=== PATIENT | female | born 1945 | race Caucasian/White ===

== ENCOUNTER → 2018-09-27 | Outpatient (CLI) | payer MEDICARE ==
[~2018-09-27] MED LIST: ASPI-892; CITA-105 PO; FLEC100T2 PO; IPRA15SP2 NS; LORA10TA2; LORA10TA7 PO; METO-272 PO; MGX400T PO; MNTL10T PO; MTP100TCR PO; PARO20TA57; PROP10DR2 OP; RANI-10 PO; VIT D PO; WARF7.5T PO; WRF5T PO
--- NOTE | 2018-09-27 20:56 | Diagnostic Imaging Report ---
INDICATION: Routine screening. Comparison is made with prior mammograms from 01/29/2013 and 01/27/2012. 2-D and 3-D bilateral screening mammography was performed. The current study was also evaluated with a Computer Aided Detection (CAD) system. 3-D tomosynthesis was also performed and reviewed. FINDINGS: Scattered fibroglandular densities are identified bilaterally. The parenchymal pattern is stable. No mass or malignant-appearing microcalcifications are seen. The axillae are unremarkable. IMPRESSION: No mammographic features suspicious for malignancy are identified. ACR BI-RADS Category 1: Negative. Result letter will be mailed to the patient. Note: At least 10% of breast cancer is not imaged by mammography. Dictated by: Dictated on workstation # [id number]
== END ==
LOC: RAD 09:50
DX: Z12.31 Encounter for screening mammogram for malignant neoplasm of breast (principal)
CPT/HCPCS: 77067

== ENCOUNTER → 2021-02-05 | Outpatient (CLI) | payer MEDICARE ==
[2021-02-05 11:14] LABS: HEMATOCRIT 42 % (35-52); HEMOGLOBIN 13.2 g/dL (11.5-16.0); MEAN CORPUSCULAR HEMOGLOBIN 31 pg (25-34); MEAN CORPUSCULAR HGB CONC 32 g/dL (32-36); MEAN CORPUSCULAR VOLUME 97 fL (80-99); MEAN PLATELET VOLUME 9.9 fL (9.0-12.2); PLATELET COUNT 243 10^3/uL (130-400); WHITE BLOOD COUNT 4.7 10^3/uL (4.3-11.0)
[2021-02-05 11:22] LABS: ALBUMIN 3.8 GM/DL (3.2-4.5)
[2021-02-05 11:23] LABS: POTASSIUM 3.9 MMOL/L (3.6-5.0)
[2021-02-05 11:24] LABS: CALCIUM 9.8 MG/DL (8.5-10.1)
[2021-02-05 11:25] LABS: TOTAL PROTEIN 7.4 GM/DL (6.4-8.2)
[2021-02-05 11:27] LABS: BILIRUBIN,TOTAL 0.8 MG/DL (0.1-1.0)
[2021-02-05 11:29] LABS: CREATININE SERUM 0.82 MG/DL (0.60-1.30)
--- NOTE | 2021-02-05 12:27 | Diagnostic Imaging Report ---
INDICATION: ABNORMAL WEIGHT LOSS. TECHNIQUE: Two view chest 11:36 AM CORRELATION STUDY: 07/24/2009 FINDINGS: Heart size enlarged. Vasculature slightly increased. Slight fullness of the hilum, left greater than right. Small bilateral pleural effusions, right greater than left. Likely minimal atelectasis at the lung bases with minimal infiltrate not excluded. Mild degenerative change of the visualized thoracic and lumbar spine. Vascular calcification of the abdominal aorta. IMPRESSION: 1. Cardiac enlargement without failure. 2. Small pleural effusions with likely minimal atelectasis or infiltrate both lung bases. 3. Given findings and history, consideration for CT imaging would be recommended. Dictated by: Dictated on workstation # [id number]
--- NOTE | 2021-02-05 18:01 | Diagnostic Imaging Report ---
PROCEDURE: CT abdomen and pelvis without contrast. TECHNIQUE: Multiple contiguous axial images were obtained through the abdomen and pelvis without the use of intravenous contrast. Auto Exposure Controls were utilized during the CT exam to meet ALARA standards for radiation dose reduction. INDICATION: Abnormal weight loss. COMPARISON: 09/02/2010. FINDINGS: Small left greater than right bibasilar pleural effusions are present with associated adjacent atelectasis. The heart is enlarged. 1 cm hypodensity is present within the right hepatic lobe, not significantly changed since 2010, consistent with a non-aggressive process. The unenhanced liver is otherwise unremarkable. The unenhanced spleen is unremarkable. The adrenal glands are unremarkable. The gallbladder is unremarkable. Mild fatty infiltration of the pancreas. Otherwise, the pancreas is unremarkable. Small nonobstructing right renal calculus. The unenhanced kidneys are otherwise unremarkable. The ureters are unremarkable. Moderate vascular calcifications within the abdominal aorta and its branch vessels without aneurysmal dilatation of the abdominal aorta. Postsurgical changes associated with the anterior abdominal wall. The urinary bladder is unremarkable. The uterus is not visualized, surgically absent. No abnormal adnexal mass lesion. Colonic diverticulosis without CT evidence of diverticulitis. No bowel obstruction or pneumatosis. The appendix is unremarkable. No significant adenopathy, free air, or free fluid within the abdomen or pelvis. [place] left curvature of the spine. Significant multilevel degenerative changes are present. Grade 1 anterolisthesis of L3 on L4. There is resulting multilevel central canal stenosis and neural foraminal stenosis within the lumbar spine. IMPRESSION: Small, left greater than right bibasilar pleural effusions with adjacent atelectasis. Cardiomegaly. Colonic diverticulosis without CT evidence of diverticulitis. Small nonobstructing right renal calculus. Significant degenerative changes within the spine with resulting multilevel central canal and neural foraminal stenosis. Additional findings as above. Dictated by: Dictated on workstation # [id number]
--- NOTE | 2021-02-08 10:20 | Diagnostic Imaging Report ---
INDICATION: Routine screening. COMPARISON: 09/27/2018. TECHNIQUE: 2D and 3D bilateral screening mammography was performed with CAD. FINDINGS: Scattered fibroglandular densities are identified bilaterally. The parenchymal pattern is stable. No mass or malignant-appearing microcalcifications are seen. The axillae are unremarkable. IMPRESSION: No mammographic features suspicious for malignancy are identified. ACR BI-RADS Category 1: Negative. Result letter will be mailed to the patient. Note: At least 10% of breast cancer is not imaged by mammography. Dictated by: Dictated on workstation # [id number]
== END ==
LOC: RAD 11:30
DX: Z12.31 Encounter for screening mammogram for malignant neoplasm of breast (principal); I51.7 Cardiomegaly; D50.0 Iron deficiency anemia secondary to blood loss (chronic); J90 Pleural effusion, not elsewhere classified; K57.30 Diverticulosis of large intestine without perforation or abscess without bleeding; N20.0 Calculus of kidney; M47.816 Spondylosis without myelopathy or radiculopathy, lumbar region; M48.061 Spinal stenosis, lumbar region without neurogenic claudication; M43.16 Spondylolisthesis, lumbar region
CPT/HCPCS: 36415; 71046; 74176; 77063; 77067; 80053; 82728; 84443; 85027

== ENCOUNTER → 2021-02-11 | Outpatient (CLI) | payer MEDICARE ==
--- NOTE | 2021-02-11 16:50 | Diagnostic Imaging Report ---
PROCEDURE: CT chest without contrast. TECHNIQUE: Multiple contiguous axial images were obtained through the chest without the use of intravenous contrast. Auto Exposure Controls were utilized during the CT exam to meet ALARA standards for radiation dose reduction. INDICATION: Pleural effusion. COMPARISON: 02/05/[address] of the abdomen dated 09/02/2010. FINDINGS: Enlargement with suggestion of a 2.7 cm hypodense nodule within the right thyroid lobe. Precarinal lymph node is mildly enlarged measuring 1.2 cm in short dimension. No additional adenopathy is definitely identified within the chest although evaluation is slightly limited secondary to the lack of intravenous contrast. Mild scattered vascular calcifications without aneurysmal dilatation of the thoracic aorta. The heart is enlarged, particularly the right heart. No pericardial effusion. Small to moderate sized dependently layering bilateral pleural effusions with adjacent atelectasis. No pneumothorax. The trachea is patent. 0.4 cm left upper lobe pulmonary nodule, series 3, image 37. Mild scarring and/or atelectasis within the lingula. 0.4 cm right upper lobe pulmonary nodule, series 3, image 49. Mild atelectasis within the right lower lobe and right middle lobe. Mild fatty infiltration of the pancreas. 1.3 cm hypodensity is identified within the posterior aspect of the right hepatic lobe, not significantly changed since prior imaging from 09/02/2010. The visualized upper abdomen is otherwise unremarkable. No acute osseous abnormality with mild scattered osseous degenerative changes. IMPRESSION: Small to moderate-sized dependently layering bilateral pleural effusions with minimal adjacent atelectasis. Bilateral 0.4 cm and smaller pulmonary nodules. A followup CT of the chest is recommended in 1 year to reevaluate. 2.7 cm nodule within the right thyroid lobe with associated enlargement of the right thyroid gland. Recommend a thyroid ultrasound for further evaluation. Mild precarinal adenopathy, of uncertain etiology or significance. Dictated by: Dictated on workstation # [id number]
== END ==
LOC: RAD 15:17
DX: J90 Pleural effusion, not elsewhere classified (principal); E04.1 Nontoxic single thyroid nodule; R91.8 Other nonspecific abnormal finding of lung field; R59.9 Enlarged lymph nodes, unspecified
CPT/HCPCS: 71250

== ENCOUNTER → 2021-03-09 | Outpatient (CLI) | payer MEDICARE ==
--- NOTE | 2021-03-09 16:54 | Diagnostic Imaging Report ---
PROCEDURE: US Thyroid. TECHNIQUE: Multiple real-time grayscale images were obtained of the thyroid in various projections. INDICATION: Follow-up of thyroid nodule on CT scan. FINDINGS: The right lobe measures 5.4 x 2.2 x 2 cm. There are two solid nodules demonstrated, both are which hypoechoic and well circumscribed. Largest is off the lower portion measuring 2.2 x 2.4 x 2.2 cm and appears taller than wide. This has a few small anechoic areas. No calcifications are seen. Smaller lesion measures 1.9 x 1.4 x 1.7 cm, hypoechoic throughout without calcification. The left lobe measures 5.4 x 2.7 x 1.8 cm. There are two solid nodules, largest present in the lower pole measuring 1 x 0.8 x 0.7 cm with rather ill-defined margin. Second in the upper portion measuring 0.6 x 0.4 x 0.6 cm which is hypoechoic. No calcification. There is normal blood flow. IMPRESSION: Bilateral thyroid nodules. 1. The largest nodule is inferiorly on the right which is solid and hypoechoic, taller than wide, without calcification. Additional smaller thyroid nodules. The large nodule is considered highly suspicious. Would recommend ultrasound-guided biopsy, TI-RADS 5. 2. The remaining thyroid nodules are considered mildly suspicious, TI-RADS 3. Dictated by: Dictated on workstation # [id number]
== END ==
LOC: RAD 14:30
DX: E04.2 Nontoxic multinodular goiter (principal)
CPT/HCPCS: 76536

== ENCOUNTER 2021-10-09 08:31 | Inpatient (IN) | payer MEDICARE ==
[~2021-10-09] VITALS: Ht 162.6 cm; Wt 88.3 kg
--- NOTE | 2021-10-09 08:48 | ED Respiratory ---
General Chief Complaint: Respiratory Problems Stated Complaint: SOB Source: patient Exam Limitations: no limitations History of Present Illness Date Seen by Provider: Oct 09, 2021 Time Seen by Provider: 08:35 Initial Comments Patient is a 76-year-old female who presents to the emergency department today with a chief complaint of shortness of breath. Her symptoms have been coming on for about a week. She has an occasionally productive cough. She denies sinus congestion, runny nose or sore throat. No reported fevers or chills. She denies any chest pain, pressure, tightness or heaviness. No swelling. She is COVID vaccinated without boosters. She has a history of atrial fibrillation on anticoagulation, Eliquis. No problems with bowel or bladder. No other complaints of illness. She decided to come to the emergency room this morning because "I cannot breathe". She does see Dr. Ramírez for her A. fib management. She does not have a local provider as her primary care recently . She was noted on presentation to be slightly labored in her breathing with room air saturations of 85%. She does not use oxygen at home, she does not use inhalers. She has a remote smoking history. She states she has never had a heart cath. All other review of systems reviewed and negative except as stated. Timing/Duration: week, getting worse Severity: moderate Modifying Factors: Worse With Activity Associated Symptoms: cough, dizziness (with exertion) Allergies and Home Medications Allergies Coded Allergies: Penicillins (Verified Allergy, Unknown, 06/03/07) levofloxacin (Verified Allergy, Unknown, 06/03/07) Patient Home Medication List Home Medication List Reviewed: Yes Citalopram Hydrobromide (Citalopram Hbr) 40 Mg Tablet, 40 MG PO, (Reported) Entered as Reported by: REY GEIGER on 08/09/11 0823 Flecainide Acetate (Flecainide Acetate) 100 Mg Tablet, 100 MG PO BID, (Reported) Entered as Reported by: MERY MACIEL on 07/24/09 1448 Ipratropium [place] (Ipratropium [place]) 15 Ml [place], 15 ML NS TID PRN, (Reported) Entered as Reported by: BOB ALEMAN on 08/09/11 1203 Loratadine (Loratadine) 10 Mg Tablet, 10 MG PO DAILY PRN, (Reported) Entered as Reported by: BOB ALEMAN on 08/09/11 1203 Metoprolol Succinate (Toprol Xl) 100 Mg Tab, 100 MG PO HS, (Reported) Entered as Reported by: LOLIS IQBAL on 01/15/09 163 Metoprolol Succinate (Metoprolol Succinate Xl 50 Mg) 50 Mg Tab.sr.24h, 50 MG PO DAILY, (Reported) Entered as Reported by: BOB ALEMAN on 08/09/11 120 Montelukast Sodium (Singulair 10 Mg) 10 Mg Tablet, 10 MG PO DAILY, (Reported) Entered as Reported by: REY GEIGER on 08/09/11 08 Propylene Glycol/Peg 400 (Systane Ultra 0.3-0.4% Eye Drp) 10 Ml Drops, 10 ML OP TID PRN, (Reported) Entered as Reported by: BOB ALEMAN on 08/09/11 120 Ranitidine Hcl (Acid Control) 150 Mg Tablet, 150 MG PO BID, (Reported) Entered as Reported by: LOLIS IQBAL on 01/15/09 163 Warfarin Sod (Coumadin 5 Mg) 5 Mg Tab, 5 MG PO DAILY, (Reported) Entered as Reported by: LOLIS IQBAL on 01/15/09 163 Warfarin Sod (Coumadin) 7.5 Mg Tablet, 7.5 MG PO , MON., (Reported) Entered as Reported by: BOB ALEMAN on 08/09/11 120 [Vit D] , 50,000 UNIT PO, (Reported) Entered as Reported by: REY GEIGER on 08/09/11 08 Review of Systems Review of Systems Constitutional: see HPI EENTM: no symptoms reported Respiratory: cough, dyspnea on exertion, phlegm, short of breath Cardiovascular: no symptoms reported Gastrointestinal: no symptoms reported Genitourinary: no symptoms reported : No Musculoskeletal: no symptoms reported Skin: no symptoms reported All Other Systems Reviewed Negative Unless Noted: Yes Past Ytfyupw-Hzojph-Lpjdiv Hx Past Medical History Reproductive Disorders: Yes Physical Exam Vital Signs - First Documented 10/09/21 08:32 Temp 36.4 Pulse 113 Resp 26 B/P (MAP) 202/137 (158) Pulse Ox 95 O2 Delivery Nasal Cannula O2 Flow Rate 3.00 Capillary Refill : Height: '" Weight: lbs. oz. kg; BMI Method:Stated General Appearance: WD/WN, mild distress Eyes: Bilateral Eye Normal Inspection, Bilateral Eye PERRL, Bilateral Eye EOMI Neck: normal inspection Respiratory: respiratory distress (mild), rhonchi, other (wet cough) Cardiovascular: tachycardia (110), irregularly irregular Gastrointestinal: normal bowel sounds, non tender, soft Extremities: normal range of motion, non-tender, normal inspection, no pedal edema Neurologic/Psychiatric: alert, normal mood/affect, oriented x 3 Skin: normal color, warm/dry Focused Exam Lactate Level 10/09/21 08:55: Lactic Acid Level 1.66 Lactic Acid Level Laboratory Tests Test 10/09/21 08:55 Lactic Acid Level 1.66 MMOL/L (0.50-2.00) Progress/Results/Core Measures Suspected Sepsis SIRS Temperature: Pulse: Respiratory Rate: Laboratory Tests 10/09/21 08:45: White Blood Count 8.9 Blood Pressure / Mean: 10/09/21 08:55: Lactic Acid Level 1.66 Laboratory Tests 10/09/21 08:45: Creatinine 0.83, INR Comment 1.2, Platelet Count 261, Total Bilirubin 1.7H Results/Orders Lab Results Laboratory Tests Test 10/09/21 08:45 10/09/21 08:55 10/09/21 10:48 Range/Units White Blood Count 8.9 4.3-11.0 10^3/uL Red Blood Count 4.34 3.80-5.11 10^6/uL Hemoglobin 14.0 11.5-16.0 g/dL Hematocrit 43 35-52 % Mean Corpuscular Volume 100 H 80-99 fL Mean Corpuscular Hemoglobin 32 25-34 pg Mean Corpuscular Hemoglobin Concent 32 32-36 g/dL Red Cell Distribution Width 13.1 10.0-14.5 % Platelet Count 261 130-400 10^3/uL Mean Platelet Volume 9.9 9.0-12.2 fL Immature Granulocyte % (Auto) 0 % Neutrophils (%) (Auto) 73 42-75 % Lymphocytes (%) (Auto) 15 12-44 % Monocytes (%) (Auto) 10 0-12 % Eosinophils (%) (Auto) 1 0-10 % Basophils (%) (Auto) 1 0-10 % Neutrophils # (Auto) 6.5 1.8-7.8 10^3/uL Lymphocytes # (Auto) 1.4 1.0-4.0 10^3/uL Monocytes # (Auto) 0.9 0.0-1.0 10^3/uL Eosinophils # (Auto) 0.1 0.0-0.3 10^3/uL Basophils # (Auto) 0.1 0.0-0.1 10^3/uL Immature Granulocyte # (Auto) 0.0 0.0-0.1 10^3/uL Prothrombin Time 15.2 H 12.2-14.7 SEC INR Comment 1.2 0.8-1.4 Activated Partial Thromboplast Time 38 H 24-35 SEC Sodium Level 138 135-145 MMOL/L Potassium Level 4.6 3.6-5.0 MMOL/L Chloride Level 102 98-107 MMOL/L Carbon Dioxide Level 24 21-32 MMOL/L Anion Gap 12 5-14 MMOL/L Blood Urea Nitrogen 18 7-18 MG/DL Creatinine 0.83 0.60-1.30 MG/DL Estimat Glomerular Filtration Rate 73 BUN/Creatinine Ratio 22 Glucose Level 127 H 70-105 MG/DL Calcium Level 9.7 8.5-10.1 MG/DL Corrected Calcium 9.8 8.5-10.1 MG/DL Magnesium Level 1.8 1.6-2.4 MG/DL Total Bilirubin 1.7 H 0.1-1.0 MG/DL Aspartate Amino Transf (AST/SGOT) 26 5-34 U/L Alanine Aminotransferase (ALT/SGPT) 21 0-55 U/L Alkaline Phosphatase 149 H 40-136 U/L Myoglobin 39.2 10.0-92.0 NG/ML Troponin I < 0.028 <0.028 NG/ML B-Type Natriuretic Peptide 847.8 H <100.0 PG/ML Total Protein 8.2 6.4-8.2 GM/DL Albumin 3.9 3.2-4.5 GM/DL Lactic Acid Level 1.66 0.50-2.00 MMOL/L SARS-CoV-2 RNA (RT-PCR) Detected H Not Detecte Urine Color YELLOW Urine Clarity CLEAR Urine pH 6.5 5-9 Urine Specific [place] 1.010 L 1.016-1.022 Urine Protein NEGATIVE NEGATIVE Urine Glucose (UA) NEGATIVE NEGATIVE Urine Ketones NEGATIVE NEGATIVE Urine Nitrite NEGATIVE NEGATIVE Urine Bilirubin NEGATIVE NEGATIVE Urine Urobilinogen 0.2 < = 1.0 MG/DL Urine Leukocyte Esterase TRACE H NEGATIVE Urine RBC (Auto) NEGATIVE NEGATIVE Urine RBC RARE /HPF Urine WBC RARE /HPF Urine Squamous Epithelial Cells 5-10 /HPF Urine Crystals NONE /LPF Urine Bacteria NEGATIVE /HPF Urine Casts NONE /LPF Urine Mucus NEGATIVE /LPF Urine Culture Indicated CULTURE PENDING Micro Results Microbiology 10/09/21 Urine Culture - Final, Complete Mixed Bacterial [place] 10/09/21 Blood Culture - Preliminary, Resulted No growth My Orders Orders - AROLDO DELA CRUZ MD Cbc With Automated Diff (10/09/21 08:42) Magnesium (10/09/21 08:42) Chest 1 View, Ap/Pa Only (10/09/21 08:42) Ekg Tracing (10/09/21 08:42) Comprehensive Metabolic Panel (10/09/21 08:42) Myoglobin Serum (10/09/21 08:42) Protime With Inr (10/09/21 08:42) Partial Thromboplastin Time (10/09/21 08:42) O2 (10/09/21 08:42) Monitor-Rhythm Ecg Trace Only (10/09/21 08:42) Ed Iv/Invasive Line Start (10/09/21 08:42) Bnp Bridgett (10/09/21 08:42) Troponin I [place] (10/09/21 08:42) Blood Culture (10/09/21 08:42) Sputum Culture (10/09/21 08:42) Urinalysis (10/09/21 08:42) Urine Culture (10/09/21 08:42) Ed Iv/Invasive Line Start (10/09/21 08:42) Ed Iv/Invasive Line Start (10/09/21 08:42) Vital Signs Adult Sepsis Patie Q15M (10/09/21 08:42) O2 (10/09/21 08:42) Remove Rings In Anticipation O (10/09/21 08:42) Lactic Acid Analyzer (10/09/21 08:42) Covid 19 Inhouse Test (10/09/21 08:42) Isolation Central Supply Req (10/09/21 08:42) Dexamethasone Injection (Decadron Injec (10/09/21 10:15) Ed Admission (Communication) (10/09/21 11:19) Medications Given in ED Vital Signs/I&O 10/09/21 10/09/21 08:32 08:32 Temp 36.4 Pulse 113 Resp 26 B/P (MAP) 202/137 (158) Pulse Ox 95 95 O2 Delivery Nasal Cannula Nasal Cannula O2 Flow Rate 3.00 3.00 Capillary Refill : ECG Initial ECG Impression Date: Oct 09, 2021 Initial ECG Impression Time: 08:49 Initial ECG Rate: 97 Initial ECG Rhythm: A Fib/Flutter Initial ECG Impression: Atrial Fibrillation Diagnostic Imaging Diagonstic Imaging: Xray Plain Films/CT/US/NM/MRI: chest Comments [facility] [place], [place] NAME: [facility] REC#: [id number] PT STATUS: REG ER : 1945 PHYSICIAN: AROLDO DELA CRUZ MD ADMIT DATE: 10/09/21/ER Draft Date of Exam:10/09/21 CHEST 1 VIEW, AP/PA ONLY Indication: Chest pain. Comparison: 02/05/2021. Discussion: Single portable upright view of the chest was obtained. Borderline cardiomegaly appears stable. Moderate left pleural effusion is new. Some infiltrate along the right infrahilar region, concerning for pneumonia. There may be some additional infiltrate within the left lung base, atelectasis versus pneumonia. No pneumothorax or osseous abnormality. Impression: 1. Moderate left pleural effusion. 2. Bibasilar infiltrates, likely pneumonia. Dictated on workstation # [id number] Dict: 10/09/21 1033 Trans: 10/09/21 1036 CVB [id number] Interpreted by: ROBERTO CARLOS RUDOLPH MD Electronically signed by: Departure Communication (Admissions) Time/Spoke to Admitting Phy: 11:[address] Lewis Impression Primary Impression: Pneumonia due to COVID-19 virus Additional Impressions: Atrial fibrillation Qualified Codes: I48.91 - Unspecified atrial fibrillation Hypertension Qualified Codes: I10 - Essential (primary) hypertension Disposition: ADMITTED INPATIENT Condition: Stable Admissions Decision to Admit Reason: Admit from ER (General) Decision to Admit/Date: Oct 09, 2021 Time/Decision to Admit Time: 11:50 Departure-Patient Inst. Referrals: NO,LOCAL PHYSICIAN (PCP/Family) Primary Care Physician AROLDO DELA CRUZ MD Oct 09, 2021 08:48
[2021-10-09 08:59] LABS: BASOPHILS # (AUTO) 0.1 10^3/uL (0.0-0.1); BASOPHILS % (AUTO) 1 % (0-10); EOSINOPHILS # (AUTO) 0.1 10^3/uL (0.0-0.3); EOSINOPHILS % (AUTO) 1 % (0-10); HEMATOCRIT 43 % (35-52); LYMPHOCYTES # (AUTO) 1.4 10^3/uL (1.0-4.0); LYMPHOCYTES % (AUTO) 15 % (12-44); MEAN CORPUSCULAR HEMOGLOBIN 32 pg (25-34); MEAN CORPUSCULAR HGB CONC 32 g/dL (32-36); MEAN CORPUSCULAR VOLUME 100 fL (80-99); MEAN PLATELET VOLUME 9.9 fL (9.0-12.2); MONOCYTES # (AUTO) 0.9 10^3/uL (0.0-1.0); MONOCYTES % (AUTO) 10 % (0-12); NEUTROPHILS # (AUTO) 6.5 10^3/uL (1.8-7.8); NEUTROPHILS % (AUTO) 73 % (42-75); PLATELET COUNT 261 10^3/uL (130-400); WHITE BLOOD COUNT 8.9 10^3/uL (4.3-11.0)
[2021-10-09 09:07] LABS: INR 1.2 (0.8-1.4); PROTHROMBIN TIME PATIENT 15.2 SEC (12.2-14.7)
[2021-10-09 09:08] LABS: ALBUMIN 3.9 GM/DL (3.2-4.5); POTASSIUM 4.6 MMOL/L (3.6-5.0)
[2021-10-09 09:09] LABS: CALCIUM 9.7 MG/DL (8.5-10.1)
[2021-10-09 09:10] LABS: TOTAL PROTEIN 8.2 GM/DL (6.4-8.2)
[2021-10-09 09:12] LABS: BILIRUBIN,TOTAL 1.7 MG/DL (0.1-1.0)
[2021-10-09 09:14] LABS: CREATININE SERUM 0.83 MG/DL (0.60-1.30)
[2021-10-09 09:17] LABS: MAGNESIUM 1.8 MG/DL (1.6-2.4)
--- NOTE | 2021-10-09 10:37 | Diagnostic Imaging Report ---
Indication: Chest pain. Comparison: 02/05/2021. Discussion: Single portable upright view of the chest was obtained. Borderline cardiomegaly appears stable. Moderate left pleural effusion is new. Some infiltrate along the right infrahilar region, concerning for pneumonia. There may be some additional infiltrate within the left lung base, atelectasis versus pneumonia. No pneumothorax or osseous abnormality. Impression: 1. Moderate left pleural effusion. 2. Bibasilar infiltrates, likely pneumonia. Dictated by: Dictated on workstation # [id number]
[2021-10-09 10:57] LABS: BILIRUBIN,URINE NEGATIVE (NEGATIVE); CLARITY,URINE CLEAR; COLOR,URINE YELLOW; GLUCOSE, URINE (UA) NEGATIVE (NEGATIVE); KETONES,URINE NEGATIVE (NEGATIVE); LEUKOCYTE ESTERASE ,URINE TRACE (NEGATIVE); NITRITE,URINE NEGATIVE (NEGATIVE); PH,URINE 6.5 (5-9); PROTEIN,URINE NEGATIVE (NEGATIVE)
[2021-10-09 11:09] LABS: BACTERIA,URINE NEGATIVE /HPF; RBC,URINE RARE /HPF; WBC,URINE RARE /HPF
[2021-10-09] MEDS ORDERED: meTOprolol SUCCINATE 100 MG (TOPROL XL) TAB PO ONE (12:00)
--- NOTE | 2021-10-09 13:42 | History & Physical-Hospitalist ---
History of Present Illness HPI/Chief Complaint Pt is a 76yoCF with a PMH A-fib, HTN, HLD who presented to the ER due to SOB. She reports illness x1 week. Her is currently sick as well. She complains of a cough and mild sputum production, poor appetite and subjective fevers. She was tested for COVID+ and was positive. She was hypoxic on arrival to the ER with sats around 85%. She is currently requiring 3lpm NC. Source: patient Date Seen 10/09/21 Time Seen by a Provider: 13:37 Attending Physician No,Local Physician PCP Admitting Physician: Maite Lewis MD Attending Physician: Maite Lewis MD Referring Physician Date of Admission Oct 09, 2021 at 11:20 Home Medications & Allergies Home Medications Reviewed patient Home Medication Reconciliation performed by pharmacy medication reconciliations reactor technician and/or nursing. Patients Allergies have been reviewed. Allergies Allergies Coded Allergies Penicillins (Verified Allergy, Unknown, 06/03/07) levofloxacin (Verified Allergy, Unknown, 06/03/07) Past Wwfgvvi-Tougji-Tyxntt Hx Patient Social History Marrital Status: Employed/Student: retired Tobacco Use?: No Smoking Status: Former Smoker Substance use?: No Alcohol Use?: No Pt feels they are or have been: No Immunizations Up To Date Date of Influenza Vaccine: Jan 08, 2011 First/Initial COVID19 Vaccinat: 2020 Current Status Advance Directives: No Communicates: Verbally Primary Language: Czech Preferred Spoken Language: Czech Is interpretation needed?: No Implanted or Applied Medical D: None Past Medical History High Cholesterol, Hypertension Family Medical History Reviewed Nursing Family Hx No Pertinent Family Hx, Heart Disease Review of Systems Constitutional: fever, malaise Respiratory: cough, short of breath Cardiovascular: No chest pain Gastrointestinal: No abdominal pain, No constipation, No diarrhea; loss of appetite; No nausea Genitourinary: no symptoms reported Musculoskeletal: no symptoms reported Skin: no symptoms reported Psychiatric/Neurological: No Symptoms Reported Physical Exam Physical Exam Vital Signs Vital Signs - First Documented 10/09/21 08:32 Temp 36.4 Pulse 113 Resp 26 B/P (MAP) 202/137 (158) Pulse Ox 95 O2 Delivery Nasal Cannula O2 Flow Rate 3.00 Capillary Refill : Less Than 3 Seconds Height, Weight, BMI Height: '" Weight: lbs. oz. kg; 36.00 BMI Method:Stated General Appearance: No Apparent Distress, WD/WN, Chronically ill, Obese HEENT: PERRL/EOMI, Moist Mucous Membranes; No Scleral Icterus (L), No Scleral Icterus (R) Neck: Normal Inspection, Supple Respiratory: Lungs Clear, No Accessory Muscle Use, No Respiratory Distress Cardiovascular: Regular Rate, Rhythm, No JVD, No Murmur Gastrointestinal: Normal Bowel Sounds, Non Tender, Soft Extremity: Normal Capillary Refill, No Calf Tenderness, No Pedal Edema Neurologic/Psychiatric: Alert, Oriented x3, Normal Mood/Affect Results Results/Procedures Labs Laboratory Tests 10/09/21 08:45 10/10/21 04:15 Patient resulted labs reviewed. Imaging: Reviewed Imaging Report Assessment/Plan Admission Diagnosis Acute hypoxic respiratory failure due to COVID19 pneumonia Admission Status: Inpatient Order (span 2 midnights) Reason for Inpatient Admission: see below Assessment and Plan Acute hypoxic respiratory failure due to COVID19 pneumonia Symptoms onset 1 week ago s/p J&J vaccine in 2020 Decadron ordered IS Oxygen to keep sats >90 Consider Actemra if worses Not a candidate for MAB due to hypoxia A-fib Chronic Anticoagulation Rate in the 110 Likely due t o hypoxic Tele Continue home meds HTN Continue home meds Trend DVT ppx: Lovenox Diagnosis/Problems Diagnosis/Problems (1) Acute respiratory failure (2) Obesity (3) Pneumonia due to COVID-19 virus (4) Hypertension Status: Acute Qualifiers: Hypertension type: primary hypertension Qualified Codes: I10 - Essential (primary) hypertension (5) Atrial fibrillation Status: Acute Qualifiers: Atrial fibrillation type: unspecified Qualified Codes: I48.91 - U nspecified atrial fibrillation MAITE LEWIS MD Oct 09, 2021 13:42
[2021-10-09 14:35] VITALS: BP 189/113
[2021-10-09] MEDS ORDERED: guaiFENesin/CODEINE (ROBITUSSIN AC) 10ML UDC PO PRN (14:45)
[2021-10-09] MEDS ORDERED: guaiFENesin SYRUP 100 MG/5 ML 10 ML (ROBITUSSIN SF) PO PRN (14:45)
[2021-10-09] MEDS ORDERED: ONDANSETRON 4 MG/2 ML (SDV) Z0FRAN IV PRN (14:45)
[2021-10-09] MEDS ORDERED: ACETAMINOPHEN 325 MG TABLET PO PRN (14:45)
--- NOTE | 2021-10-09 14:55 | Tele-ICU Progress Note ---
Subjective Date Seen by a Provider: Oct 09, 2021 Time Seen by a Provider: 13:25 Subjective/Events-last exam This virtual visit was conducted using real time audio/video. Thank you for asking us to see this patient for respiratory insufficiency due to Covid pna. Also may have undiagnosed COPD and CHF. PMH: Afib, htn, HL SH: smoking history- former FH: Non-contributory ROS: limited by patient's clinical condition, but in HPI. PE: Appears comfortable, pale, obese. VSS. HR 100-110 O2 sat 95% on 3 LPM NC. HEENT: No obvious masses, adenopathy or JVD. Chest:Diminished, coarse. CV: RRR S1 S2 No murmur or added sounds. Abd: Non-tender. Bowel sounds Y. : Unremarkable. [place] Y. [employer] DEPARTMENT OPERATOR/psychiatric: Grossly intact. No obvious focal findings. Extremities: 1-2 edema. Capillary refill < 3 seconds. Skin: unremarkable. Results: Elevated BNP 847.8, BG 127. CXR: Bibasal infilts., L pleural effusion. Appears hyperinflated.. Available chart/ vitals / labs / images reviewed. Video assessment done using teleICU camera, rest of exam as per RN. A/P: Respiratory insufficiency: Continue present management with O2, Dex.. Will add PRN duonebs. Monitor for increasing oxygenation needs and/or need for intubation. Critical Care: critically ill patient. May have undiagnosed COPD and CHF. Cont. Vish. Discussed with KENYON Arzola. Asked RN to reach out to eICU if any questions or concerns later. Time spent with patient/coordination of care with other health professionals (mins): 30 Sepsis Event Evaluation Height, Weight, BMI Height: '" Weight: lbs. oz. kg; 36.00 BMI Method:Stated Focused Exam Lactate Level 10/09/21 08:55: Lactic Acid Level 1.66 Exam Exam Patient acknowledged, consented, and participated in this virtual visit which was conducted using real time audio/video Vital Signs Date Time Temp Pulse Resp B/P (MAP) Pulse Ox O2 Delivery O2 Flow Rate FiO2 10/09/21 14:41 104 10/09/21 13:50 109 22 203/98 95 Nasal Cannula 3.00 3.00 10/09/21 08:32 36.4 113 26 202/137 (158) 95 Nasal Cannula 3.00 10/09/21 08:32 95 Nasal Cannula 3.00 Height & Weight Height: '" Weight: lbs. oz. kg; 36.00 BMI Method:Stated General Appearance: No Apparent Distress, WD/WN, Chronically ill, Obese HEENT: PERRL/EOMI, Moist Mucous Membranes; No Scleral Icterus (L), No Scleral Icterus (R) Neck: Normal Inspection, Supple Respiratory: Lungs Clear, No Accessory Muscle Use, No Respiratory Distress Cardiovascular: Regular Rate, Rhythm, No JVD, No Murmur Capillary Refill: Less Than 3 Seconds Gastrointestinal: normal bowel sounds, non tender, soft Extremity: Normal Capillary Refill, No Calf Tenderness, No Pedal Edema Neurologic/Psychiatric: Alert, Oriented x3, Normal Mood/Affect Results Lab Laboratory Tests 10/09/21 08:45 Assessment/Plan Assessment/Plan See free text. Critical Care: Critically Ill Patient MICHELLE LINK MD Oct 09, 2021 14:55
[2021-10-09 15:00] VITALS: BP 149/101
[2021-10-09] MEDS ORDERED: ENOXAPARIN 40 MG/0.4 ML (LOVENOX) SYR SC SCH (15:00)
[2021-10-09] MEDS ORDERED: RT-ALBUTEROL/IPRATROPIUM 3 ML (DUONEB) VIAL INH PRN (15:00)
[2021-10-09 16:00] VITALS: BP 158/98
[2021-10-09] MEDS ORDERED: RT-ALBUTEROL HFA 8.5 GM INHALER IH PRN (16:00)
[2021-10-09 20:13] VITALS: BP 128/68
[2021-10-09] MEDS: guaiFENesin (MUCINEX) 600 MG TAB PO SCH (20:15)
[2021-10-10] VITALS (7 sets, daily range): BP systolic 122–159; BP diastolic 70–104
[2021-10-10 04:32] LABS: HEMATOCRIT 40 % (35-52); MEAN CORPUSCULAR HEMOGLOBIN 32 pg (25-34); MEAN CORPUSCULAR HGB CONC 32 g/dL (32-36); MEAN CORPUSCULAR VOLUME 99 fL (80-99); MEAN PLATELET VOLUME 10.1 fL (9.0-12.2); PLATELET COUNT 221 10^3/uL (130-400); WHITE BLOOD COUNT 4.3 10^3/uL (4.3-11.0)
[2021-10-10 04:45] LABS: POTASSIUM 4.1 MMOL/L (3.6-5.0)
[2021-10-10 04:46] LABS: CALCIUM 9.2 MG/DL (8.5-10.1)
[2021-10-10 04:51] LABS: CREATININE SERUM 0.7 MG/DL (0.60-1.30)
[2021-10-10] MEDS ORDERED: ACETAMINOPHEN 500 MG TAB (TYLENOL) PO ONE (07:00)
--- NOTE | 2021-10-10 09:00 | Tele-ICU Progress Note ---
Subjective Date Seen by a Provider: Oct 10, 2021 Time Seen by a Provider: 07:10 Subjective/Events-last exam This virtual visit was conducted using real time audio/video. Thank you for asking us to see this patient for respiratory insufficiency due to Covid pna. Also may have undiagnosed COPD and CHF. PMH: Afib, htn, HL SH: smoking history- former PE: Appears comfortable, pale, obese. VSS. HR 100-110 O2 sat 95% on 2 LPM NC. HEENT: No obvious masses, adenopathy or JVD. Chest:Diminished, coarse. CV: Irreg S1 S2 No murmur or added sounds. Abd: Non-tender. Bowel sounds Y. : Unremarkable. [place] Y. AGENT/psychiatric: Grossly intact. No obvious focal findings. Extremities: 1+ edema. Capillary refill < 3 seconds. Skin: unremarkable. Results: Elevated BNP 847.8, BG 110. CXR: Bibasal infilts., L pleural effusion. Appears hyperinflated. Available chart/ vitals / labs / images reviewed. Video assessment done using teleICU camera, rest of exam as per RN. A/P: Respiratory insufficiency: Continue present management with O2, Dex. PRN Albuterol. Monitor for increasing oxygenation needs and/or need for intubation. Critical Care: critically ill patient. May have undiagnosed COPD and CHF. Cont. Vish. Discussed with KENYON Arzola. Asked RN to reach out to eICU if any questions or concerns later. Time spent with patient/coordination of care with other health professionals (mins): 20 Sepsis Event Evaluation Height, Weight, BMI Height: '" Weight: lbs. oz. kg; 34.68 BMI Method:Stated Focused Exam Lactate Level 10/09/21 08:55: Lactic Acid Level 1.66 Exam Exam Patient acknowledged, consented, and participated in this virtual visit which was conducted using real time audio/video Vital Signs Date Time Temp Pulse Resp B/P (MAP) Pulse Ox O2 Delivery O2 Flow Rate FiO2 10/10/21 08:00 77 12 122/104 (110) 97 Nasal Cannula 3.00 10/10/21 07:58 97 Nasal Cannula 2.00 10/10/21 07:00 80 10/10/21 04:00 96 Nasal Cannula 3.00 10/10/21 04:00 67 23 149/81 (103) 96 Nasal Cannula 3.00 10/10/21 01:00 81 10/10/21 00:00 95 Nasal Cannula 3.00 10/10/21 00:00 36.2 Nasal Cannula 3.00 10/10/21 00:00 82 25 141/91 (108) 96 Nasal Cannula 3.00 10/09/21 20:13 36.3 98 21 128/68 (88) 95 Nasal Cannula 3.00 10/09/21 20:00 96 Nasal Cannula 3.00 10/09/21 19:00 93 10/09/21 16:52 Nasal Cannula 3.00 10/09/21 16:00 95 21 158/98 (118) 96 Nasal Cannula 5.00 10/09/21 16:00 94 Nasal Cannula 3.00 10/09/21 15:00 97 24 149/101 (117) 95 Nasal Cannula 5.00 10/09/21 14:41 104 10/09/21 14:35 36.0 113 26 189/113 (138) 91 Nasal Cannula 5.00 10/09/21 14:20 91 Nasal Cannula 5.00 10/09/21 13:50 109 22 203/98 95 Nasal Cannula 3.00 3.00 I & O 10/10/21 06:59 Intake Total 960 ml Output Total 2225 ml Balance -1265 ml Height & Weight Height: '" Weight: lbs. oz. kg; 34.68 BMI Method:Stated General Appearance: No Apparent Distress, WD/WN, Chronically ill, Obese HEENT: PERRL/EOMI, Moist Mucous Membranes; No Scleral Icterus (L), No Scleral Icterus (R) Neck: Normal Inspection, Supple Respiratory: Lungs Clear, No Accessory Muscle Use, No Respiratory Distress Cardiovascular: Regular Rate, Rhythm, No JVD, No Murmur Capillary Refill: Less Than 3 Seconds Gastrointestinal: normal bowel sounds, non tender, soft Extremity: Normal Capillary Refill, No Calf Tenderness, No Pedal Edema Neurologic/Psychiatric: Alert, Oriented x3, Normal Mood/Affect Results Lab Laboratory Tests 10/09/21 08:45 10/10/21 04:15 Assessment/Plan Assessment/Plan See free text. Critical Care: Critically Ill Patient MICHELLE LINK MD Oct 10, 2021 09:00
[2021-10-10] MEDS: ALLOPURINOL 100 MG (ZYLOPRIM) TAB PO SCH (09:08)
[2021-10-10] MEDS: PARoxetine 20 MG (PAXIL) TAB PO SCH (09:08)
[2021-10-10] MEDS: FLECAINIDE 100 MG (TAMBOCOR) TAB PO SCH ×2 (09:08→19:38)
[2021-10-10] MEDS: meTOproloL SUCCINATE 50 MG (TOPROL XL) TAB PO SCH (09:08)
[2021-10-10] MEDS: guaiFENesin (MUCINEX) 600 MG TAB PO SCH ×2 (09:08→19:38)
[2021-10-10] MEDS: dexAMETHasone 6 MG TAB (DECADRON) PO SCH (09:09)
--- NOTE | 2021-10-10 10:31 | Progress Note - Hospitalist ---
Subjective HPI/CC On Admission Date Seen by Provider: Oct 10, 2021 Pt is a 76yoCF with a PMH A-fib, HTN, HLD who presented to the ER due to SOB. She reports illness x1 week. Her is currently sick as well. She complains of a cough and mild sputum production, poor appetite and subjective fevers. She was tested for COVID+ and was positive. She was hypoxic on arrival to the ER with sats around 85%. She is currently requiring 3lpm NC. Subjective/Events-last exam Pt reports doing much better today. No Complaints. Breathing improved. Discussed plan to transfer to the floor and DC lucero. She is agreeable to this. Focused Exam Lactate Level 10/09/21 08:55: Lactic Acid Level 1.66 Objective Exam Vital Signs Vital Signs Date Time Temp Pulse Resp B/P (MAP) Pulse Ox O2 Delivery O2 Flow Rate FiO2 10/10/21 08:00 97 Nasal Cannula 2.00 10/10/21 08:00 36.5 10/10/21 08:00 77 12 Capillary Refill : Less Than 3 Seconds General Appearance: No Apparent Distress, Obese Respiratory: Lungs Clear, No Respiratory Distress Cardiovascular: No Murmur, Irregularly Irregular Gastrointestinal: Normal Bowel Sounds, Soft Genital/Rectal: Other (lucero in place) Neurologic/Psychiatric: Alert, Oriented x3 Results/Procedures Lab Laboratory Tests 10/10/21 04:15 Patient resulted labs reviewed. Imaging: Reviewed Imaging Report Assessment/Plan Assessment and Plan Assess & Plan/Chief Complaint Acute hypoxic respiratory failure due to COVID19 pneumonia Symptoms onset 1 week ago s/p J&J vaccine in 2020 Decadron IS Oxygen to keep sats >90- 1 weaned to 1lpm NC Consider Actemra if worsens Not a candidate for MAB due to hypoxia transfer to med/surg A-fib Chronic Anticoagulation Rate much improved Likely due to hypoxic Tele Continue home meds HTN Continue home meds Trend DVT ppx: Home eliquis Critical Care Critically Ill Patient Diagnosis/Problems Diagnosis/Problems (1) Acute respiratory failure (2) Obesity (3) Pneumonia due to COVID-19 virus (4) Hypertension Status: Acute Qualifiers: Hypertension type: primary hypertension Qualified Codes: I10 - Essential (primary) hypertension (5) Atrial fibrillation Status: Acute Qualifiers: Atrial fibrillation type: unspecified Qualified Codes: I48.91 - Unspecified atrial fibrillation MAITE PATEL MD Oct 10, 2021 10:31
[2021-10-10] MEDS: APIXABAN 5 MG (ELIQUIS) TABLET PO SCH ×2 (12:00→19:38)
[2021-10-10] MEDS: MIRTAZAPINE 15 MG (REMERON) TAB PO SCH (19:36)
[2021-10-10] MEDS: MONTELUKAST 10 MG (SINGULAIR) TAB PO SCH (19:38)
[2021-10-11 04:00] VITALS: BP 148/83
[2021-10-11 07:43] VITALS: BP 156/89
[2021-10-11] MEDS: FLECAINIDE 100 MG (TAMBOCOR) TAB PO SCH ×2 (08:15→20:41)
[2021-10-11] MEDS: ALLOPURINOL 100 MG (ZYLOPRIM) TAB PO SCH (08:15)
[2021-10-11] MEDS: dexAMETHasone 6 MG TAB (DECADRON) PO SCH (08:15)
[2021-10-11] MEDS: APIXABAN 5 MG (ELIQUIS) TABLET PO SCH ×2 (08:15→20:41)
[2021-10-11] MEDS: guaiFENesin (MUCINEX) 600 MG TAB PO SCH ×2 (08:15→20:41)
[2021-10-11] MEDS: PARoxetine 20 MG (PAXIL) TAB PO SCH (08:15)
[2021-10-11] MEDS: meTOproloL SUCCINATE 50 MG (TOPROL XL) TAB PO SCH (08:15)
[2021-10-11 11:27] VITALS: BP 118/73
--- NOTE | 2021-10-11 15:17 | Progress Note - Hospitalist ---
Subjective HPI/CC On Admission Date Seen by Provider: Oct 11, 2021 Time Seen by Provider: 12:15 Pt is a 76yoCF with a PMH A-fib, HTN, HLD who presented to the ER due to SOB. She reports illness x1 week. Her is currently sick as well. She complains of a cough and mild sputum production, poor appetite and subjective fevers. She was tested for COVID+ and was positive. She was hypoxic on arrival to the ER with sats around 85%. She is currently requiring 3lpm NC. Focused Exam Lactate Level 10/09/21 08:55: Lactic Acid Level 1.66 Objective Exam Vital Signs Vital Signs Date Time Temp Pulse Resp B/P (MAP) Pulse Ox O2 Delivery O2 Flow Rate FiO2 10/11/21 16:11 37.4 91 20 121/68 (85) 95 Nasal Cannula 2.00 Capillary Refill : Less Than 3 Seconds Results/Procedures Lab Patient resulted labs reviewed. Imaging: Reviewed Imaging Report Assessment/Plan Critical Care Critically Ill Patient NOEMY RAHMAN MD Oct 11, 2021 15:17
[2021-10-11 16:11] VITALS: BP 121/68
--- NOTE | 2021-10-11 16:12 | Progress Note - Hospitalist ---
Subjective HPI/CC On Admission Date Seen by Provider: Oct 11, 2021 Time Seen by Provider: 12:15 Pt is a 76yoCF with a PMH A-fib, HTN, HLD who presented to the ER due to SOB. She reports illness x1 week. Her is currently sick as well. She complains of a cough and mild sputum production, poor appetite and subjective fevers. She was tested for COVID+ and was positive. She was hypoxic on arrival to the ER with sats around 85%. She is currently requiring 3lpm NC. Subjective/Events-last exam She is doing well. She is not short of breath. She is sleepy. She has no complaints. Focused Exam Lactate Level 10/09/21 08:55: Lactic Acid Level 1.66 Objective Exam Vital Signs Vital Signs Date Time Temp Pulse Resp B/P (MAP) Pulse Ox O2 Delivery O2 Flow Rate FiO2 10/11/21 11:27 37.1 98 16 118/73 (88) 94 Nasal Cannula 10/11/21 10:32 2.00 Capillary Refill : Less Than 3 Seconds General Appearance: No Apparent Distress, Obese Respiratory: Lungs Clear, No Respiratory Distress Cardiovascular: Regular Rate, Rhythm, No Murmur Gastrointestinal: Normal Bowel Sounds, Non Tender, Soft Extremity: Normal Inspection, No Pedal Edema Neurologic/Psychiatric: Alert, Normal Mood/Affect Skin: Normal Color, Warm/Dry Results/Procedures Lab Patient resulted labs reviewed. Imaging: Reviewed Imaging Report Assessment/Plan Assessment and Plan Assess & Plan/Chief Complaint Acute hypoxic respiratory failure due to COVID19 pneumonia s/p J&J vaccine in 2020 Decadron Weaning oxygen as able A-fib Chronic Anticoagulation Continue home meds HTN Continue home meds Obesity Clinically significant, no acute management needs DVT ppx: Home eliquis Diagnosis/Problems Diagnosis/Problems (1) Acute respiratory failure Status: Acute Qualifiers: Respiratory failure complication: hypoxia Qualified Codes: J96.01 - Acute respiratory failure with hypoxia (2) Pneumonia due to COVID-19 virus Status: Acute (3) Atrial fibrillation Status: Acute Qualifiers: Atrial fibrillation type: unspecified Qualified Codes: I48.91 - Unspecif ied atrial fibrillation (4) Hypertension Status: Acute Qualifiers: Hypertension type: primary hypertension Qualified Codes: I10 - Essential (primary) hypertension (5) Obesity Status: Chronic NOEMY RAHMAN MD Oct 11, 2021 16:12
[2021-10-11 19:04] VITALS: BP 138/79
[2021-10-11] MEDS: MONTELUKAST 10 MG (SINGULAIR) TAB PO SCH (20:41)
[2021-10-11] MEDS: MIRTAZAPINE 15 MG (REMERON) TAB PO SCH (20:41)
[2021-10-12 04:00] VITALS: BP 155/93
[2021-10-12] MEDS: FLECAINIDE 100 MG (TAMBOCOR) TAB PO SCH (08:57)
[2021-10-12] MEDS: meTOproloL SUCCINATE 50 MG (TOPROL XL) TAB PO SCH (08:57)
[2021-10-12] MEDS: APIXABAN 5 MG (ELIQUIS) TABLET PO SCH (08:57)
[2021-10-12] MEDS: guaiFENesin (MUCINEX) 600 MG TAB PO SCH (08:58)
[2021-10-12] MEDS: ALLOPURINOL 100 MG (ZYLOPRIM) TAB PO SCH (08:58)
[2021-10-12] MEDS: PARoxetine 20 MG (PAXIL) TAB PO SCH (08:58)
[2021-10-12] MEDS: dexAMETHasone 6 MG TAB (DECADRON) PO SCH (08:58)
[2021-10-12 11:54] VITALS: BP 137/82
--- NOTE | 2021-10-12 11:57 | Physical Therapy Evaluation ---
PT Evaluation-General Medical Diagnosis Admission Date Oct 09, 2021 at 11:20 Medical Diagnosis: Covid/A-fib Onset Date: Oct 09, 2021 Therapy Diagnosis Therapy Diagnosis: debility/weakness Precautions Precautions/Isolations: Airborne Isolation, Contact Isolation, Fall Prevention, Standard Precautions, Contact/Enteric Isolation Referral Physician: Mike Reason for Referral: Evaluation/Treatment Medical History Pertinent Medical History: Atrial Fib, HTN Current History ER secondary to SOA x 1 week Reviewed History: Yes Social History Home: Single Level Prior Prior Level of Function SCALE: Activities may be completed with or without assistive devices. 9-Osxcwzlswj-cpinavb completes the activity by him/herself with no assistance from a helper. 5-Set-up or Clean-up Assistance-helper sets up or cleans up; patient completes activity. Roy assists only prior to or following the activity. 4-Supervision or Touching Assistance-helper provides verbal cues and/or touching/steadying and/or contact guard assistance as patient completes activity. Assistance may be provided throughout the activity or intermittently. 3-Partial/Moderate Assistance-helper does LESS THAN HALF the effort. Roy lifts, holds or supports trunk or limbs, but provides less than half the effort. 2-Substantial/Maximal Assistance-helper does MORE THAN HALF the effort. Roy lifts or holds trunk or limbs and provides more than half the effort. 5-Nuufujjul-kywida does ALL the effort. Patient does none of the effort to complete the activity. Or, the assistance of 2 or more helpers is required for the patient to complete the activity. If activity was not attempted, code reason: 7-Patient Refused. 9-Not Applicable-not attempted and the patient did not perform the activity before the current illness, exacerbation or injury. 10-Not Attempted due to Environmental Limitations-(lack of equipment, weather restraints, etc.). 88-Not Attempted due to Medical Conditions or Safety Concerns. Bed Mobility: 6 Transfers (B,C,W/C): 6 Gait: 6 Indoor Mobility (Ambulation): Independent Prior Device Use: cane PT Evaluation-Current Subjective Patient agrees to PT. Objective Patient Orientation: Person, Time Attachments: [place] Catheter ROM/Strength ROM Lower Extremities bilateral LE WFL Strength Lower Extremities 3+/5 grossly bilateral LE Integumentary/Posture Bladder Incontinence: [place] Cath Posture WFL Neuromuscular (Tone, Coordination, Reflexes) grossly intact Sensory Vision: Functional Hearing: Functional Transfers Lying to Sitting/Side of Bed(Q: 4 Sit to Stand (QC): 4 Chair/Ywa-nj-Qxqsp Xfer(QC): 4 Gait Mode of Locomotion: Walk Anticipated Mode of Locomotion: Walk Walk 10 feet (QC): 4 Walk 50 ft with 2 Turns(QC): 4 Walk 150 ft (QC): 4 Distance: 150' in room Gait Assistive Device: FWW Comments/Gait Description safe and functional with no deviation Balance Sitting Static: Normal Sitting Dynamic: Normal Standing Static: Fair Standing Dynamic: Fair Assessment/Needs 76 y.o. female, will be seen short term by skilled PT to address functional mobility to ensure safe return to home at maximum LOF. Rehab Potential: Fair PT Glaze Supervisor Goals Correction Goals PT Glaze Supervisor Goals Time Frame: Oct 23, 2021 Roll Left & Right (QC): 6 Sit to Lying (QC): 6 Lying-Sitting on Side/Bed(QC): 6 Sit to Stand (QC): 6 Chair/Xiu-ri-Abfnz Xfer(QC): 6 Toilet Transfer (QC): 6 Walk 10 feet (QC): 6 Walk 50ft with 2 Turns (QC): 6 Walk 150 ft (QC): 6 PT Plan Problem List Problem List: Activity Tolerance, Functional Strength, Safety, Balance, Gait, Transfer, Bed Mobility Treatment/Plan Treatment Plan: Continue Plan of Care Treatment Plan: Bed Mobility, Education, Functional Activity Sabrina, Functional Strength, Gait, Safety, Therapeutic Exercise, Transfers Treatment Duration: Oct 23, 2021 Frequency: 6 times per week Estimated Hrs Per Day: .25 hour per day Time/GCodes Time In: 1110 Time Out: 1121 Total Billed Treatment Time: 11 Total Billed Treatment 1 visit [facility] 11 min BREE MENESES PT Oct 12, 2021 11:57
[2021-10-12] MEDS ORDERED: FURO40TA4 PO (14:10)
[2021-10-12] MEDS ORDERED: MELO15TA39 PO (14:10)
[2021-10-12] MEDS ORDERED: ERGO1250 PO (14:10)
[2021-10-12] MEDS ORDERED: MTP100TCR PO (14:10)
[2021-10-12] MEDS ORDERED: PARO40TA3 PO (14:10)
[2021-10-12] MEDS ORDERED: METO50TA7 PO (14:10)
[2021-10-12] MEDS ORDERED: MONT-40 PO (14:10)
[2021-10-12] MEDS ORDERED: FLEC100T PO (14:10)
[2021-10-12] MEDS ORDERED: MIRT-69 PO (14:10)
[2021-10-12] MEDS ORDERED: ALLO100T PO (14:10)
[2021-10-12] MEDS ORDERED: OMEP40CA6 PO (14:10)
[2021-10-12] MEDS ORDERED: APIX5TAB PO (14:10)
[2021-10-12] MEDS ORDERED: ATOR20TA66 PO (14:10)
--- NOTE | 2021-10-12 16:08 | Discharge Summary ---
Discharge Summary Hospital Course Problems/Dx: (1) Acute respiratory failure Status: Acute Qualifiers: Qualified Codes: J96.01 - Acute respiratory failure with hypoxia (2) Pneumonia due to COVID-19 virus Status: Acute (3) Atrial fibrillation Status: Acute Qualifiers: Qualified Codes: I48.91 - Unspecified atrial fibrillation (4) Hypertension Status: Acute Qualifiers: Qualified Codes: I10 - Essential (primary) hypertension (5) Obesity Status: Chronic Hospital Course Date of Admission: Oct 09, 2021 at 11:20 Admission Diagnosis : Acute respiratory failure due to COVID-19 Family Physician/Provider: Vasquez Michael Physician Date of Discharge: 10/12/21 Discharge Diagnosis: Acute respiratory failure due to COVID-19 Hospital Course: Phyllis Plunkett is a 76 year old female who was admitted with acute respiratory failure due to COVID-19. She was treated with Decadron and her hypoxia improved. She underwent a home oxygen evaluation and required 1 L with exertion. Her course was complicated by afib with RVR which improved. She was continued on her home meds. She was discharged home in stable condition. She needs to establish with a new primary care physician. She was offered home health care but denied. Labs and Pending Lab Test: Microbiology 10/09/21 Blood Culture - Preliminary, Resulted No growth 10/09/21 Urine Culture - Final, Complete Mixed Bacterial Annalee Home Meds Active Reported Atorvastatin Calcium 20 Mg Tablet 20 Mg PO DAILY Furosemide 40 Mg Tablet 40 Mg PO DAILY Vitamin D2 (Ergocalciferol (Vitamin D2)) 1,250 Mcg (36947 Unit) Capsule 1,250 Mcg PO WEEK Eliquis (Apixaban) 5 Mg Tablet 5 Mg PO BID Mirtazapine 30 Mg Tablet 30 Mg PO HS Paroxetine HCl 40 Mg Tablet 40 Mg PO DAILY Omeprazole 40 Mg Capsule.dr 40 Mg PO DAILY Montelukast Sodium 10 Mg Tablet 10 Mg PO DAILY Meloxicam 15 Mg Tablet 15 Mg PO DAILY Metoprolol Succinate 100 Mg Tab.er.24h 100 Mg PO HS Metoprolol Succinate 50 Mg Tab.er.24h 50 Mg PO DAILY Allopurinol 100 Mg Tablet 100 Mg PO DAILY Flecainide Acetate 100 Mg Tablet 100 Mg PO BID Assessment/Pt Instructions Take medications as prescribed. You are being set up with home oxygen. Establish with a new primary care physician. Return with worsening shortness of breath, weakness, or if you feel like you are getting worse. Discharge Planning: >30 minutes discharge planning Discharge Instructions Discharge Diet: No Restrictions Activity as Tolerated: Yes Discharge Physical Examination Vital Signs Vital Signs Date Time Temp Pulse Resp B/P (MAP) Pulse Ox O2 Delivery O2 Flow Rate FiO2 10/12/21 11:54 36.9 92 18 137/82 (100) 93 Room Air 10/12/21 08:00 1.00 General Appearance: No Apparent Distress, Obese Respiratory: Lungs Clear, No Respiratory Distress Cardiovascular: Regular Rate, Rhythm, No Murmur Gastrointestinal: Normal Bowel Sounds, Soft Extremity: Normal Inspection, No Pedal Edema Skin: Normal Color, Warm/Dry Neurologic/Psychiatric: Alert, Normal Mood/Affect Allergies: Coded Allergies: Penicillins (Verified Allergy, Unknown, 06/03/07) levofloxacin (Verified Allergy, Unknown, 06/03/07) Discharge Summary Date of Admission Oct 09, 2021 at 11:20 Date of Discharge Discharge Date: Oct 12, 2021 Discharge Time: 16:03 Admission Diagnosis Acute hypoxic respiratory failure due to COVID19 pneumonia Discharge Diagnosis Acute hypoxic respiratory failure due to COVID19 pneumonia (1) Acute respiratory failure Status: Acute Qualifiers: Qualified Codes: J96.01 - Acute respiratory failure with hypoxia (2) Pneumonia due to COVID-19 virus Status: Acute (3) Atrial fibrillation Status: Acute Qualifiers: Qualified Codes: I48.91 - Unspecified atrial fibrillation (4) Hypertension Status: Acute Qualifiers: Qualified Codes: I10 - Essential (primary) hypertension (5) Obesity Status: Chronic NOEMY RAHMAN MD Oct 12, 2021 16:08
== END 2021-10-12 16:45 | disposition home or self-care (01) | DRG 177 ==
LOC: EDUNIT# 08:31 → ER 08:32 → ICU 11:20 → 4TH 10-10 12:17
PROVIDERS: ADMIT Family Medicine; ATTEND Internal Medicine
PROC: 8E0ZXY6 Isolation (ICD-10-PCS; principal; 2021-10-09)
DX: U07.1 COVID-19 (principal); J12.82 Pneumonia due to coronavirus disease 2019; J96.01 Acute respiratory failure with hypoxia; I48.91 Unspecified atrial fibrillation; I10 Essential (primary) hypertension; E78.00 Pure hypercholesterolemia, unspecified; E66.9 Obesity, unspecified; Z68.33 Body mass index [BMI] 33.0-33.9, adult; Z79.01 Long term (current) use of anticoagulants; Z79.899 Other long term (current) drug therapy; Z88.0 Allergy status to penicillin; Z88.1 Allergy status to other antibiotic agents; Z87.891 Personal history of nicotine dependence
CPT/HCPCS: 36415; 71045; 80048; 80053; 80061; 81000; 82947; 83605; 83735; 83874; 83880; 84484; 85025; 85027; 85610; 85730; 87040; 87088; 87636; 93005; 93041; 94640; 94760; 94761